=== PATIENT | male | born 1980 | race Caucasian/White ===

== ENCOUNTER 2017-01-09 02:56 | Emergency (ER) | payer OTHER, MEDICAID ==
[~2017-01-09] VITALS: Ht 182.9 cm; Wt 83.9 kg
[2017-01-09 04:12] LABS: BASOPHIL % 0.1 % (0-2); PLATELET COUNT 368 x10^3mcL (130-400)
[2017-01-09 04:14] LABS: RED CELL DISTRIBUTION WIDTH 15.3 % (11.5-14.5)
[2017-01-09 04:28] LABS: ALBUMIN 4.4 g/dL (3.4-5.0); ALKALINE PHOSPHATASE 76 U/L (46-116); ALT/SGPT 49 U/L (16-63); AST/SGOT 50 U/L (15-37); CARBON DIOXIDE 28.3 mmol/L (21-32); CHLORIDE SERUM 101 mmol/L (98-107); CREATININE SERUM 1.2 mg/dL (0.7-1.3); GFR1 > 60 mL/min; POTASSIUM SERUM 3.6 mmol/L (3.5-5.1); SODIUM SERUM 143 mmol/L (136-145); TOTAL PROTEIN, SERUM 8.2 g/dL (6.4-8.2)
[2017-01-09 04:30] LABS: GLUCOSE SERUM 57 mg/dL (74-106)
[2017-01-09 06:51] VITALS: BP 126/68
== END 2017-01-09 06:52 | disposition home or self-care (01) ==
LOC: ED 02:56 → EDBD 02:56 → ED 06:52
PROVIDERS: Emergency Medicine
DX: F13.239 Sedative, hypnotic or anxiolytic dependence with withdrawal, unspecified (principal); R56.9 Unspecified convulsions; M79.7 Fibromyalgia; F43.10 Post-traumatic stress disorder, unspecified; F31.9 Bipolar disorder, unspecified; Z88.0 Allergy status to penicillin; Z88.8 Allergy status to other drugs, medicaments and biological substances; T42.4X5A Adverse effect of benzodiazepines, initial encounter; Y92.89 Other specified places as the place of occurrence of the external cause
CPT/HCPCS: J2060; J2405; J7030